=== PATIENT | male | born 1995 | race Caucasian/White ===

== ENCOUNTER 2016-03-28 23:24 | Inpatient (IN) | payer MEDICAID ==
[~2016-03-28] VITALS: Ht 177.8 cm; Wt 151.9 kg
[2016-03-28] MEDS ORDERED: LORAZEPAM 2 MG TAB PO PRN (23:30)
[2016-03-28] MEDS ORDERED: HALOPERIDOL 5 MG/ML VIAL IM PRN (23:30)
[2016-03-28] MEDS ORDERED: DIPHENHYDRAMINE 50 MG/ML VIAL IM PRN (23:30)
[2016-03-28] MEDS ORDERED: HALOPERIDOL 5 MG TAB PO PRN (23:30)
[2016-03-28] MEDS ORDERED: DIPHENHYDRAMINE 50 MG CAP PO PRN (23:30)
[2016-03-28] MEDS ORDERED: LORAZEPAM 2 MG/ML VIAL IM PRN (23:30)
[2016-03-28] MEDS ORDERED: ACETAMINOPHEN 325 MG TAB PO PRN (23:30)
[2016-03-28 23:45] VITALS: BP_SYST 152; RESP 16; TEMP 98.4
[2016-03-28 23:46] VITALS: Ht 177.8 cm; Wt 151.9 kg
[2016-03-29 00:45] VITALS: RESP 16
[2016-03-29 07:13] VITALS: BP_SYST 155; RESP 20; TEMP 98.7
[2016-03-29] MEDS: NICOTINE 21 MG/24 HR TRANSDERM SCH (09:00)
[2016-03-29] MEDS ORDERED: NEB-ALBUTEROL 2.5 MG/3 ML INH PRN (12:50)
[2016-03-29] MEDS ORDERED: ALBUTEROL HFA INH PRN (13:10)
[2016-03-29] MEDS: FLUOXETINE 20 MG CAP PO SCH (13:33)
[2016-03-29] MEDS: PANTOPRAZOLE 40 MG TAB PO SCH (15:22)
[2016-03-29 16:24] VITALS: RESP 18
[2016-03-29 18:53] VITALS: BP_SYST 152; RESP 20; TEMP 99
[2016-03-29] MEDS ORDERED: ALU/MAG/SIM 30 ML UDC PO PRN (22:30)
[2016-03-29] MEDS ORDERED: MAG HYDROX 30 ML UDC PO PRN (22:30)
[2016-03-29] MEDS ORDERED: ALU/MAG/SIM 30 ML UDC ONE (22:34)
[2016-03-29] MEDS: TRAZODONE 50 MG TAB PO PRN (23:27)
[2016-03-30] MEDS: PANTOPRAZOLE 40 MG TAB PO SCH (06:23)
[2016-03-30 07:39] VITALS: BP_SYST 161; RESP 20; TEMP 97.8
[2016-03-30] MEDS: NICOTINE 21 MG/24 HR TRANSDERM SCH (08:19)
[2016-03-30] MEDS: FLUOXETINE 20 MG CAP PO SCH (08:19)
[2016-03-30 19:00] VITALS: BP_SYST 152; RESP 16; TEMP 98.2
[2016-03-30] MEDS: TRAZODONE 50 MG TAB PO PRN (21:45)
[2016-03-31] MEDS: PANTOPRAZOLE 40 MG TAB PO SCH (07:12)
[2016-03-31] MEDS: FLUOXETINE 20 MG CAP PO SCH (08:44)
[2016-03-31] MEDS: NICOTINE 21 MG/24 HR TRANSDERM SCH (08:44)
[2016-03-31 08:49] VITALS: BP_SYST 144; RESP 18; TEMP 97.7
[2016-03-31 09:40] VITALS: BP_SYST 144; RESP 18; TEMP 97.7
== END 2016-03-31 12:23 | disposition home or self-care (01) | DRG 885 ==
LOC: PSY 23:25
PROVIDERS: ADMIT Psychiatry & Neurology Psychiatry; ATTEND Psychiatry & Neurology Psychiatry
CPT/HCPCS: 80053; 81003; 84439; 84443; 85025; 94799